=== PATIENT | male | born 1985 | race Caucasian/White ===

== ENCOUNTER 2020-01-11 18:43 | Emergency (ER) | payer BC ==
[2020-01-11] MEDS ORDERED: predniSONE 20 MG Tab PO ONE (20:39)
[2020-01-11] MEDS ORDERED: Famotidine 20 MG Tab PO ONE (20:40)
[2020-01-11] MEDS ORDERED: hydrOXYzine Pamoate 25 MG Cap PO ONE (20:44)
--- NOTE | 2020-01-11 20:46 | EDM.PDOC ---
ED HPI GENERAL MEDICAL PROBLEM - General Chief Complaint: Skin Complaint Stated Complaint: ALLERGIC REACTION Time Seen by Provider: 01/11/20 20:17 Source of Information: Reports: Patient History Limitations: Reports: No Limitations - History of Present Illness INITIAL COMMENTS - FREE TEXT/NARRATIVE: Presents reporting an allergic rash. She states that for the last 2 days he has noticed a worsening rash over his hands forearms posterior neck and lower belly. He states it is very itchy. He has not identified a trigger including laundry soaps, toiletries, new clothing, environmental. He has not traveled anywhere or done anything different in his work routine. 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 - Related Data Allergies Allergy/AdvReac Type Severity Reaction Status Date / Time No Known Allergies Allergy Verified 01/11/20 19:22 Home Meds: Home Meds Famotidine [Pepcid] 20 mg PO DAILY 5 Days #5 tablet 01/11/20 [Rx] Triamcinolone Acetonide [Triamcinolone Acetonide 0.1% Crm] 1 applic .XX BID #15 gm 01/11/20 [Rx] predniSONE [Prednisone] 2 tab PO DAILY #10 tablet 01/11/20 [Rx] Past Medical History - Past Health History Medical/Surgical History: Denies Medical/Surgical History Cardiovascular History: Reports: Hypertension - Infectious Disease History Infectious Disease History: Reports: Chicken Pox Social & Family History - Family History Family Medical History: Noncontributory ED ROS GENERAL - Review of Systems Review Of Systems: Comprehensive ROS is negative, except as noted in HPI. ED EXAM, SKIN/RASH Exam: See Below Exam Limited By: No Limitations General Appearance: Alert, No Apparent Distress Ears: Normal External Exam Nose: Normal Inspection Throat/Mouth: Normal Inspection, Normal Oropharynx, Other (No Mouth tongue or lip swelling) Head: Atraumatic, Normocephalic Neck: Normal Inspection Respiratory/Chest: No Respiratory Distress, Lungs Clear, Normal Breath Sounds Cardiovascular: Normal Peripheral Pulses, Regular Rate, Rhythm Rectal (Males) Exam: Normal Exam Back Exam: Normal Inspection Extremities: Normal Inspection Neurological: Alert, Oriented, Normal Cognition Psychiatric: Normal Affect, Normal Mood Skin: Other (Skin toned dense 0.3 cm macules covering dorsal hands forearms posterior neck. More diffuse in the upper arms and lower abdomen.) Course - Vital Signs Last Recorded V/S: Last Vital Signs Temp 36.7 C 01/11/20 19:17 Pulse 85 01/11/20 19:17 Resp 16 01/11/20 19:17 BP 191/130 H 01/11/20 19:17 Pulse Ox 97 01/11/20 19:17 - Orders/Labs/Meds Orders: Active Orders 24 hr Category Date Time Status Famotidine [Pepcid] Med 01/11/20 20:40 Once 20 mg PO ONETIME ONE Medication Orders Famotidine (Pepcid) 20 mg PO ONETIME ONE Stop: 01/11/20 20:41 Meds: Medications Generic Name Dose Route Start Last Admin Trade Name Freq PRN Reason Stop Dose Admin Famotidine 20 mg 01/11/20 20:40 Pepcid PO 01/11/20 20:41 ONETIME ONE Discontinued Medications Generic Name Dose Route Start Last Admin Trade Name Freq PRN Reason Stop Dose Admin Prednisone 60 mg 01/11/20 20:39 Prednisone PO 01/11/20 20:40 ONETIME ONE Departure - Departure Time of Disposition: 20:46 Disposition: Home, Self-Care 01 Condition: Good Clinical Impression: Allergic dermatitis - Discharge Information Referrals: Josse Anders MD [Primary Care Provider] - Additional Instructions: The following information is given to patients seen in the emergency department who are being discharged to home. This information is to outline your options for follow-up care. We provide all patients seen in our emergency department with a follow-up referral. The need for follow-up, as well as the timing and circumstances, are variable depending upon the specifics of your emergency department visit. If you don't have a primary care physician on staff, we will provide you with a referral. We always advise you to contact your personal physician following an emergency department visit to inform them of the circumstance of the visit and for follow-up with them and/or the need for any referrals to a consulting specialist. The emergency department will also refer you to a specialist when appropriate. This referral assures that you have the opportunity for follow-up care with a specialist. All of these measure are taken in an effort to provide you with optimal care, which includes your follow-up. Under all circumstances we always encourage you to contact your private physician who remains a resource for coordinating your care. When calling for follow-up care, please make the office aware that this follow-up is from your recent emergency room visit. If for any reason you are refused follow-up, please contact the [facility] Department at and asked to speak to the emergency department charge nurse. 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 Take 2 prednisone and one famotidine daily. 2. You may try the triamcinolone cream twice daily to affected areas. 3. Return or see your primary provider if symptoms worsen or do not improve as expected Sepsis Event Note (ED) - Evaluation Sepsis Screening Result: No Definite Risk - Focused Exam Vital Signs: Vital Signs Temp Pulse Resp BP Pulse Ox 01/11/20 19:17 36.7 C 85 16 191/130 H 97 - My Orders Last 24 Hours: My Active Orders 01/11/20 20:40 Famotidine [Pepcid] 20 mg PO ONETIME ONE - Assessment/Plan Last 24 Hours: My Active Orders 01/11/20 20:40 Famotidine [Pepcid] 20 mg PO ONETIME ONE
== END 2020-01-11 21:03 | disposition home or self-care (01) ==
LOC: MW.ED 18:43
DX: L23.9 Allergic contact dermatitis, unspecified cause (principal); I10 Essential (primary) hypertension; Z79.899 Other long term (current) drug therapy
CPT/HCPCS: 99282; A9270